=== PATIENT | male | born 1995 | race Caucasian/White ===

== ENCOUNTER 2016-12-10 16:58 | Emergency (ER) | payer MEDICAID ==
[~2016-12-10] VITALS: Ht 185.4 cm; Wt 70.3 kg
[2016-12-10 17:00] VITALS: BP_SYST 116
[2016-12-10] MEDS ORDERED: ACETAMINOPHEN 500 MG TABLET ONE (17:37)
[2016-12-10 17:47] VITALS: BP_SYST 118
== END 2016-12-10 17:47 | disposition home or self-care (01) ==
LOC: SED 16:58
DX: J02.9 Acute pharyngitis, unspecified (principal); J45.909 Unspecified asthma, uncomplicated; Z91.018 Allergy to other foods; Z91.013 Allergy to seafood; Z91.048 Other nonmedicinal substance allergy status
CPT/HCPCS: 99283

== ENCOUNTER 2018-09-26 19:11 | Emergency (ER) | payer MEDICAID ==
[~2018-09-26] VITALS: Ht 185.4 cm; Wt 70.3 kg
[2018-09-26 19:15] VITALS: BP_SYST 123
--- NOTE | 2018-09-26 19:15 | NUR ---
Note ursulamickey in EDM - 09/26/18 at 2128 by MORIS Pt c/o Right sided chest wall pain reproduced with deep respirations. Pain is also reproduced to right upper back at same time. Pt states pain onset yesterday afternoon while playing soft ball. Pt states that he slid in head first to second base on two occasions. No SOB, no obvious deformities or trauma noted.
--- NOTE | 2018-09-26 21:12 | NUR ---
Pt c/o Right sided chest wall pain reproduced with deep respirations. Pain is also reproduced to right upper back at same time. Pt states pain onset yesterday afternoon while playing soft ball. Pt states that he slid in head first to second base on two occasions. No SOB, no obvious deformities or trauma noted.
--- NOTE | 2018-09-26 21:12 | NUR ---
Placed in room 7 . Placed on cardiac rehabilitation program director, blood pressure machine and pulse oximeter. To gown for exam. Side rails up. Report given to ELLIE CARTER.
[2018-09-26] MEDS ORDERED: KETOROLAC TROMETHAMINE 60 MG/2 ML VIAL IM ONE (21:45)
--- NOTE | 2018-09-26 21:45 | NUR ---
Dr. Hanna at bedside.
[2018-09-26 22:40] VITALS: BP_SYST 128
--- NOTE | 2018-09-26 22:40 | NUR ---
Patient given written and verbal discharge instructions and verbalizes understanding. ER MD discussed with patient the results and treatment provided. Patient in stable condition. ID arm band removed. No Rx given. Patient educated on pain management and to follow up with PMD. Pain Scale 1/10. Opportunity for questions provided and answered. Medication side effect fact sheet provided.
== END 2018-09-26 22:40 | disposition home or self-care (01) ==
LOC: SED 19:11
DX: R07.89 Other chest pain (principal); M54.6 Pain in thoracic spine; J45.909 Unspecified asthma, uncomplicated; Z91.013 Allergy to seafood; Z91.018 Allergy to other foods
CPT/HCPCS: 93005; 96372; 99283; J1885